=== PATIENT | female | born 1950 | race Caucasian/White ===

== ENCOUNTER 2017-05-17 16:57 | Outpatient (CLI) | payer MEDICARE, OTHER | END 2017-05-17 16:58 | disposition home or self-care (01) | LOC: BICMRI 16:57 | PROVIDERS: ATTEND Neurological Surgery | DX: M54.5 Low back pain (principal); M54.6 Pain in thoracic spine; M46.96 Unspecified inflammatory spondylopathy, lumbar region; M53.86 Other specified dorsopathies, lumbar region; M53.84 Other specified dorsopathies, thoracic region | CPT/HCPCS: 72146; 72148 ==

== ENCOUNTER 2017-05-18 19:05 | Emergency (ER) | payer MEDICARE, OTHER ==
--- NOTE | 2017-05-18 21:54 | CT ---
CT OF BRAIN PERFORMED WITHOUT CONTRAST ENHANCEMENT: 05/18/17 HISTORY: Patient fell hitting head. The ventricular and cisternal system is within normal limits. There are no signs of intracerebral hem orrhage or extra-axial fluid collections. Please see the CT facial bone report concerning those findi ngs. IMPRESSION: No acute intracranial abnormalities. POS: [facility]
--- NOTE | 2017-05-18 21:57 | CT ---
CT OF FACIAL BONES PERFORMED WITHOUT CONTRAST ENHANCEMENT: 05/18/17 HISTORY: Patient tripped and fell hitting bridge of nose and upper lip. Some very subtle deformity to the tip of the nasal bone which could represent a subtle acute fracture . Zygomatic arches are intact. There is some mucosal change within the maxillary and ethmoid air cell s but no air fluid levels. No signs of any orbital floor fracture. Pterygoid processes are intact. The mandible is normal in appearance. Condyles are in normal position. IMPRESSION: Very subtle deformity to the tip of the nasal bone which could represent a small fracture. POS: [facility]
== END 2017-05-18 22:16 | disposition home or self-care (01) ==
LOC: ERS 19:05
DX: S00.83XA Contusion of other part of head, initial encounter (principal); E03.9 Hypothyroidism, unspecified; K21.9 Gastro-esophageal reflux disease without esophagitis; Z79.899 Other long term (current) drug therapy; W18.09XA Striking against other object with subsequent fall, initial encounter
CPT/HCPCS: 70450; 70486

== ENCOUNTER 2017-10-03 12:04 | Outpatient (CLI) | payer MEDICARE, OTHER | END 2017-10-03 12:05 | disposition home or self-care (01) | LOC: BICULT 12:04 | PROVIDERS: ATTEND Internal Medicine | DX: Z12.31 Encounter for screening mammogram for malignant neoplasm of breast (principal); E03.9 Hypothyroidism, unspecified | CPT/HCPCS: 76536; 77063; 77067 ==

== ENCOUNTER 2017-12-16 16:46 | Outpatient (CLI) | payer MEDICARE, OTHER ==
--- NOTE | 2017-12-16 17:35 | RAD ---
RIGHT ANKLE THREE VIEWS: HISTORY: Deformity of the right ankle and right ankle pain. COMPARISON: None. FINDINGS: Three views of the right ankle show no evidence of acute fracture or dislocation. Mild diffuse soft tissue swelling is seen. No degenerative changes are present. IMPRESSION: No evidence of acute osseous abnormality. POS: [facility]
--- NOTE | 2017-12-16 17:36 | RAD ---
RIGHT SHOULDER THREE VIEWS: HISTORY: Right shoulder osteoarthritis. COMPARISON: None. FINDINGS: Three views of the right shoulder show no evidence of acute fracture or dislocation. No degenerative changes are seen in the glenohumeral joint. Mild degenerative changes are seen in the acromioclavic ular joint. The visualized right thorax is unremarkable. IMPRESSION: Mild acromioclavicular osteoarthritis without acute osseous abnormality. POS: [facility]
--- NOTE | 2017-12-16 17:37 | RAD ---
LEFT ANKLE THREE VIEWS: HISTORY: Left ankle pain and deformity. COMPARISON: None. FINDINGS: Three views of the left ankle show no evidence of acute fracture or dislocation. Mild diffuse soft t issue swelling is seen. No significant degenerative changes are present. IMPRESSION: No evidence of acute osseous abnormality. POS: [facility]
== END 2017-12-16 16:47 | disposition home or self-care (01) ==
LOC: RAD 16:46
PROVIDERS: ATTEND Internal Medicine Rheumatology
DX: M21.961 Unspecified acquired deformity of right lower leg (principal); M21.962 Unspecified acquired deformity of left lower leg; M19.011 Primary osteoarthritis, right shoulder

== ENCOUNTER 2017-12-20 17:19 | Emergency (ER) | payer MEDICARE, OTHER ==
--- NOTE | 2017-12-20 18:07 | RAD ---
LEFT FOOT THREE VIEW 12/20/17 HISTORY: Injury. COMPARISON: None. FINDINGS: Mild osseous demineralization. 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 There appears to be a non displaced fracture of the fourth toe proximal phalanx neck. IMPRESSION: 1. Likely a nondisplaced fracture of the fourth toe proximal phalanx neck. 2. Extensive degenerative changes. POS: [facility]
== END 2017-12-20 18:12 | disposition home or self-care (01) ==
LOC: ERS 17:19
DX: S92.512A Displaced fracture of proximal phalanx of left lesser toe(s), initial encounter for closed fracture (principal); E03.9 Hypothyroidism, unspecified; K21.9 Gastro-esophageal reflux disease without esophagitis; W22.03XA Walked into furniture, initial encounter

== ENCOUNTER 2018-01-28 05:22 | Emergency (ER) | payer MEDICARE, OTHER | END 2018-01-28 06:59 | disposition home or self-care (01) | LOC: ERS 05:22 | DX: J01.90 Acute sinusitis, unspecified (principal); E03.9 Hypothyroidism, unspecified; K21.9 Gastro-esophageal reflux disease without esophagitis; Z79.899 Other long term (current) drug therapy | CPT/HCPCS: 87081; 87430; 87804; 99283 ==

== ENCOUNTER 2018-02-05 10:17 | Outpatient (CLI) | payer MEDICARE, OTHER ==
--- NOTE | 2018-02-05 13:18 | BD ---
BONE DENSITOMETRY USING DEXA: Date: 02/05/18 HISTORY: Age-related osteoporosis, screening for postmenopausal osteoporosis. FINDINGS: Lumbar Spine: BMD (g/cm2) L1 0.940 T-Score: -0.5 Z-Score: 1.3 L2 1.021 T-Score: -0.1 Z-Score: 1.9 L3 1.099 T-Score: -0.1 Z-Score: 2.2 L4 1.167 T-Score: 1.0 Z-Score: 3.1 L1-L4 1.071 T-Score: 0.2 Z-Score: 2.3 Femoral Neck: 0.662 T-Score: -1.7 Z-Score: 0.0 Total Femur: 0.915 T-Score: -0.2 Z-Score: 1.2 There has been interval improvement of 1.7% in the bone mineral density of the lumbar spine and a red uction of 0.7% in the bone mineral density of the proximal femur since . The 10 year fracture risk for a major osteoporotic fracture is 16% and for a hip fracture is 2.5%. IMPRESSION: Osteopenia. POS: [facility]
== END 2018-02-05 10:18 | disposition home or self-care (01) ==
LOC: BICMAMMO 10:17
PROVIDERS: ATTEND Internal Medicine Rheumatology
DX: M81.0 Age-related osteoporosis without current pathological fracture (principal); M85.80 Other specified disorders of bone density and structure, unspecified site
CPT/HCPCS: 77080

== ENCOUNTER 2018-11-21 15:40 | Outpatient (CLI) | payer MEDICARE, OTHER ==
--- NOTE | 2018-11-21 17:07 | MRI ---
MRI brain with and without contrast: DATE: 11/21/2018 HISTORY: 68-year-old female with transient amnesia and headache TECHNIQUE: Multiplanar, multisequence MRI of the brain obtained pre and post IV injection of gadolinium based co ntrast agent. FINDINGS: There is no obstructive hydrocephalus. There is no midline shift or any other evidence of mass effect . There is no extra-axial fluid collection. There are mild chronic ischemic white matter changes due to microvascular atherosclerosis. There is otherwise no major intra-axial signal abnormality, abn ormal enhancement, mass, recent hemorrhage, or restricted diffusion. IMPRESSION: 1) mild chronic ischemic white matter changes. 2) otherwise negative
== END 2018-11-21 15:41 | disposition home or self-care (01) ==
LOC: BICMRI 15:40
PROVIDERS: ATTEND Family Medicine
DX: G45.4 Transient global amnesia (principal); I67.82 Cerebral ischemia
CPT/HCPCS: 70553

== ENCOUNTER 2019-02-05 14:36 | Outpatient (CLI) | payer MEDICARE, OTHER ==
--- NOTE | 2019-02-05 15:41 | MMO ---
Bilateral MAMMO Bilat Screen [facility]. CLINICAL HISTORY: Patient is 68 years old and is seen for screening. The patient has no family history of breast cancer. The patient has no personal history of cancer. VIEWS: The views performed were: bilateral craniocaudal with tomosynthesis and bilateral mediolateral oblique with tomosynthesis. FILMS COMPARED: The present examination has been compared to prior imaging studies performed at [facility] on 03/25/2015, 05/03/2016 and 10/03/2017. This study has been interpreted with the assistance of computer-aided detection. MAMMOGRAM FINDINGS: The breasts are heterogeneously dense, which could obscure a lesion on mammography. There are no suspicious masses, suspicious calcifications, or new areas of architectural distortion. IMPRESSION: THERE IS NO MAMMOGRAPHIC EVIDENCE OF MALIGNANCY. A ROUTINE FOLLOW-UP MAMMOGRAM IN 1 YEAR IS RECOMMENDED. THE RESULTS OF THIS EXAM WERE SENT TO THE PATIENT. ACR BI-RADS Category 1 - Negative MAMMOGRAPHY NOTE: 1. A negative mammogram report should not delay a biopsy if a dominant of clinically suspicious mass is present. 2. Approximately 10% to 15% of breast cancers are not detected by mammography. 3. Adenosis and dense breasts may obscure an underlying neoplasm. Reported by: KRISTIN HAJI MD Electonically Signed: [id number]
== END 2019-02-05 14:37 | disposition home or self-care (01) ==
LOC: BICMAMMO 14:36
PROVIDERS: ATTEND Family Medicine
DX: Z12.31 Encounter for screening mammogram for malignant neoplasm of breast (principal)
CPT/HCPCS: 77063; 77067

== ENCOUNTER 2019-12-03 10:02 | Outpatient (CLI) | payer MEDICARE, OTHER ==
[2019-12-03] MEDS ORDERED: Iopamidol-370 76% 500 ML 1 ML ONE (10:32)
--- NOTE | 2019-12-03 11:09 | CT ---
CT of theneck: 12/03/2019 COMPARISON:None available HISTORY:Left-sided neck pain TECHNIQUE: Serial axial CT imaging at3 mm intervals from theskull base through lung apices with IV co ntrast. Coronal and sagittal reformatted imaging obtained. Findings:Imaged lung apices unremarkable. Partially imaged paranasal sinuses and mastoid air cells gr ossly unremarkable. The retroantral fat and parapharyngeal fat appears clear bilaterally. The parotid and submandibular glands are unremarkable. The tonsillar pillars, epiglottis and preepigl ottic fat, hyoid bone, thyroid cartilage, cricoid cartilage, thyroid gland, and level of the glottis appear grossly unremarkable. Mild atherosclerotic calcification of the aortic arch. There is a medialized retropharyngeal course o f the right common carotid artery. Vascular structures of the neck appear patent. No neck lymphadenopathy. There is incompletely assessed levoscoliosis at the cervicothoracic junction. There is significant de generative change at the atlantoaxial interspace. Bilateral facet hypertrophy noted at the C3-4 level, left greater than right. At C4-5 there is significant facet and uncovertebral osteophyte forma tion on the left with extension into the left neural foramen. Prominent anterior osteophyte formation at C4-5. Disc space narrowing with posterior osteophyte formation at C6-7. No acute osseous abnormality. Impression:Significant cervical spine degenerative change. No lymphadenopathy or mass lesion within t he neck.
== END 2019-12-03 10:03 | disposition home or self-care (01) ==
LOC: BICCT 10:02
PROVIDERS: ATTEND Otolaryngology Plastic Surgery within the Head & Neck
DX: M54.2 Cervicalgia (principal); M47.812 Spondylosis without myelopathy or radiculopathy, cervical region
CPT/HCPCS: 70491; Q9967

== ENCOUNTER 2020-02-08 10:00 | Outpatient (CLI) | payer MEDICARE, OTHER ==
--- NOTE | 2020-02-08 10:25 | MMO ---
Bilateral MAMMO Bilat Screen [facility]. CLINICAL HISTORY: Patient is 69 years old and is seen for screening. The patient has no family history of breast cancer. The patient has no personal history of cancer. VIEWS: The views performed were: bilateral craniocaudal with tomosynthesis and bilateral mediolateral oblique with tomosynthesis. FILMS COMPARED: The present examination has been compared to prior imaging studies performed at [facility] on 05/03/2016, 10/03/2017 and 02/05/2019. This study has been interpreted with the assistance of computer-aided detection. MAMMOGRAM FINDINGS: The breasts are heterogeneously dense, which could obscure a lesion on mammography. There are no suspicious masses, suspicious calcifications, or new areas of architectural distortion. IMPRESSION: THERE IS NO MAMMOGRAPHIC EVIDENCE OF MALIGNANCY. A ROUTINE FOLLOW-UP MAMMOGRAM IN 1 YEAR IS RECOMMENDED. THE RESULTS OF THIS EXAM WERE SENT TO THE PATIENT. ACR BI-RADS Category 1 - Negative MAMMOGRAPHY NOTE: 1. A negative mammogram report should not delay a biopsy if a dominant of clinically suspicious mass is present. 2. Approximately 10% to 15% of breast cancers are not detected by mammography. 3. Adenosis and dense breasts may obscure an underlying neoplasm. Reported by: KRISTIN HAJI MD Electonically Signed: [id number]
== END 2020-02-08 10:01 | disposition home or self-care (01) ==
LOC: BICMAMMO 10:00
PROVIDERS: ATTEND Family Medicine
DX: Z12.31 Encounter for screening mammogram for malignant neoplasm of breast (principal)
CPT/HCPCS: 77063; 77067

== ENCOUNTER 2021-02-09 13:01 | Outpatient (CLI) | payer MEDICARE | END 2021-02-09 13:02 | disposition home or self-care (01) | LOC: BICMAMMO 13:01 | PROVIDERS: ATTEND Family Medicine | DX: Z12.31 Encounter for screening mammogram for malignant neoplasm of breast (principal) | CPT/HCPCS: 77063; 77067 ==

== ENCOUNTER 2021-11-10 10:45 | Outpatient (CLI) | payer MEDICARE | END 2021-11-10 10:46 | disposition home or self-care (01) | LOC: BICMAMMO 10:45 | PROVIDERS: ATTEND Family Medicine | DX: Z13.820 Encounter for screening for osteoporosis (principal); M81.0 Age-related osteoporosis without current pathological fracture; M85.88 Other specified disorders of bone density and structure, other site | CPT/HCPCS: 77080 ==

== ENCOUNTER 2022-02-12 10:32 | Outpatient (CLI) | payer MEDICARE | END 2022-02-12 10:33 | disposition home or self-care (01) | LOC: BICMAMMO 10:32 | PROVIDERS: ATTEND Family Medicine | DX: Z12.31 Encounter for screening mammogram for malignant neoplasm of breast (principal) | CPT/HCPCS: 77063; 77067 ==

== ENCOUNTER 2023-03-07 13:39 | Outpatient (CLI) | payer MEDICARE | END 2023-03-07 13:40 | disposition home or self-care (01) | LOC: BICMAMMO 13:39 | PROVIDERS: ATTEND Family Medicine | DX: Z12.31 Encounter for screening mammogram for malignant neoplasm of breast (principal) | CPT/HCPCS: 77063; 77067 ==

== ENCOUNTER 2024-03-12 11:30 | Outpatient (CLI) | payer MEDICARE | END 2024-03-12 11:31 | disposition home or self-care (01) | LOC: BICMAMMO 11:30 | PROVIDERS: ATTEND Family Medicine | DX: Z12.31 Encounter for screening mammogram for malignant neoplasm of breast (principal) | CPT/HCPCS: 77063; 77067 ==